=== PATIENT | female | born 2000 | race Caucasian/White ===

== ENCOUNTER → 2023-11-12 14:06 | Outpatient (REF) | payer BC, SELFPAY | LOC: DHSLP 14:06 | PROVIDERS: ATTENDING PHYSICIAN Family Medicine | DX: R06.83 Snoring (principal); E66.9 Obesity, unspecified; F41.1 Generalized anxiety disorder; R53.83 Other fatigue | CPT/HCPCS: 95806 ==

== ENCOUNTER → 2024-05-06 11:05 | Outpatient (REF) | payer BC, SELFPAY | LOC: DHSLP 11:05 | PROVIDERS: ATTENDING PHYSICIAN Internal Medicine; FAMILY PHYSICIAN Family Medicine | DX: G47.11 Idiopathic hypersomnia with long sleep time (principal) | CPT/HCPCS: 95805 ==

== ENCOUNTER 2024-09-05 00:07 | Emergency (ER) | payer BC, SELFPAY ==
[2024-09-05] VITALS (14 sets, daily range): BP systolic 110–143; BP diastolic 68–101
--- NOTE | 2024-09-05 00:16 | ED.GENMED ---
History of Present Illness
General
Chief Complaint: Alcohol Problem
Source: ambulance crew
Time Seen by Provider: 09/05/24 00:14
History of Present Illness
History of Present Illness:
23-year-old female brought to the emergency room by ambulance from a local bar where she had become unresponsive. Patient vomited at the location as well as en route with the paramedics. Patient does respond to some questions. She states that she
'drank a lot of vodka' and that she takes a lot of medication for ADHD and anxiety.
Phy Exam
Physical Exam
Physical Exam:
General: Arousable, clearly intoxicated vomitus about the face and hair
Vitals: Adequate blood pressure, pulse ox mildly tachycardic
Head: Atraumatic
Eyes: Pupils equal, EOMI
Throat: Airway intact, no exudates
Neck: Trachea midline
Lungs: Clear and equal b/l
Heart: Regular rate, no murmurs
Abd: Soft, Nontender, No pulsatile mass
Neuro: Nonfocal
Skin: Warm, dry, no rash
Extremities: pulses equal b/l, no edema
Scores
Withdrawal Assessment of Alcohol
Withdrawal Assessment Completed?: Not applicable
Course
Orders/Labs/Results
Orders:
Orders
09/05/24 00:09
Ondansetron Injectable [Zofran] 4 mg .ROUTE .[facility]
09/05/24 00:14
Ondansetron Injectable [Zofran] 4 mg IV NOW STA
Test Result ONCE
09/05/24 00:15
Electrocardiogram (*1) Urgent
Reason for Study: QTc Monitoring
EKG- Treatment ONCE
09/05/24 00:20
Alcohol Urgent
Basic Metabolic Panel Urgent
Complete Blood Count/With Diff Urgent
HCG, Serum Qualitative Screen Urgent
09/05/24 00:25
0.9% Sodium Chloride 1000 ml [Nss] 1,000 ml IV BOLUS
Abnormal Lab Results
09/05/24
00:20
Chloride 111 H mmol/L
(98-107)
Carbon Dioxide 17 L mmol/L
(22-30)
Glucose 143 H mg/dl
(70-99)
09/05/24 00:20
09/05/24 00:20
Vital Signs
Initial and Last Documented VS:
Initial Vital Signs
Pulse Resp BP Pulse Ox
104 16 131/92 92
09/05/24 00:09 09/05/24 00:09 09/05/24 00:09 09/05/24 00:09
Last Documented Vital Signs
Pulse Resp BP Pulse Ox
96 12 125/92 99
09/05/24 04:30 09/05/24 04:30 09/05/24 04:30 09/05/24 04:30
MDM/Problems Addressed
Differential Diagnosis Includes:
Alcohol intoxication, polypharmacy overdose, electrolyte abnormality
MDM/Problems Addressed:
Patient arrives clearly highly intoxicated but is able to answer some questions. I do not believe she requires intubation at this time but we will monitor her closely. Will leave her in the lateral decubitus position to prevent aspiration if she
does vomit. Any further decrease in her mental status may necessitate airway protection however
*Pulse Oximetry
SaO2: 92
Oxygen Mode of Delivery: Room air
Patient hypoxic: yes
*EKG
Interpreted by ED Provider?: Yes
Comparison EKG: no comparison EKG present
Heart Rate: 106
Rate: tachycardiac
Rhythm: sinus tachycardia
Addison: normal axis
Interval: normal interval
QRS Pattern: normal QRS
Ischemia: no ischemia
*Bottom Saw Operator Interpretation
Rate: tachycardiac
Interpretation: abnormal
Rhythm: sinus tachycardia
*Critical Care Note
Total Time (30-74mins, 75-104mins- exclusive of procedures): Not Applicable
ED Attending Note
-
Portions of this chart may have been created with voice recognition software.� Occasional wrong word or��sound alike� substitutions may have occurred due to the inherent limitations of voice recognition software.
Discharge Plan
Departure
Patient Disposition: Home (Routine Discharge)
Date of Disposition: 09/05/24
Time of Disposition: 03:04
Patient with high blood pressure during this ER visit?: No
Condition: Good
Discharge Problem:
Alcohol intoxication
Instructions: Alcohol Poisoning (DC)
Referrals:
UNKNOWN - PT DOES,NOT KNOW [Family Provider]
Interventions
Interventions:
*Risk Screen - Suicide Last Done: 09/05/24 00:09
*General Assessment Last Done: 09/05/24 00:09
*Neglect/Abuse Screening Last Done: 09/05/24 00:09
*ED- Fall Risk Assessment Last Done: 09/05/24 00:09
*ED COVID-19 Vaccine History Last Done: 09/05/24 00:09
*Nursing Disposition Last Done: 09/05/24 04:40
ED- Neurological Assessment Last Done: 09/05/24 04:20
ED-Psychological Assessment Last Done: 09/05/24 00:59
Discharge Date and Time
Discharge Date/Time: 09/05/24 04:50
Print Language: LITHUANIAN
[2024-09-05] MEDS: ZOFRAN 4 MG IV (00:22)
[2024-09-05 00:38] LABS: % Basophils 0.9 % (0-2); % Eosinophils 0.8 % (0-6); % Immature Granulocytes 0.5 % (0-0.5); % Lymphocytes 37.5 % (20.5-51.1); % Neutrophils 52.3 % (42.2-75.2); Absolute Basophils 0.1 10^3/uL (0-0.2); Absolute Eosinophils 0.1 10^3/uL (0-0.7); Absolute Monocytes 0.6 10^3/uL (0.1-0.6); Absolute Neutrophils 4.2 10^3/uL (1.4-6.5); Hematocrit 38.2 % (37.0-47.0); Hemoglobin 13.2 g/dL (12.0-16.0); Mean Corp Hgb Conc. 34.6 g/dL (33.0-37.0); Mean Corpuscular Hgb 29.7 pg (27.0-31.0); Mean Corpuscular Volume 85.8 fL (81.0-99.0); Mean Platelet Volume 9.5 fL (7.4-10.4); Nucleated Red Blood Cells % 0 %; Platelet Count 356 10^3/uL (130-400); Red Blood Cell Count 4.45 10^6/uL (4.20-5.40); Red Cell Dist. Width 12.3 % (11.5-14.5)
[2024-09-05] MEDS: NSS 1000 IV (00:46)
[2024-09-05 00:50] LABS: HCG, Serum Qualitative Screen Negative
[2024-09-05 01:37] LABS: Blood Urea Nitrogen 12 mg/dl (7-17); Calcium 9.3 mg/dl (8.4-10.2); Carbon Dioxide 17 mmol/L (22-30); Chloride 111 mmol/L (98-107); Glucose 143 mg/dl (70-99); Sodium 141 mmol/L (135-145); eGFR > 60.00
[2024-09-05 01:45] LABS: Alcohol 249 mg/dl
== END 2024-09-05 04:50 | disposition home or self-care (01) ==
LOC: EMR 00:07
PROVIDERS: EMERGENCY PHYSICIAN Emergency Medicine
DX: F10.129 Alcohol abuse with intoxication, unspecified (principal)
CPT/HCPCS: 99284; 96374; 96361; 80048; 82077; 84703; 85025; 93005